=== PATIENT | male | born 1935 | race Caucasian/White ===

== ENCOUNTER 2018-06-16 12:44 | Outpatient (CLI) | payer MEDICARE ==
--- NOTE | 2018-06-16 14:57 | MRI ---
MRI LUMBAR SPINE WITHOUT CONTRAST: Multiplanar, multisequential imaging of the lumbar spine is obtained. INDICATION: Back pain. Lumbar stenosis with claudication. FINDINGS: Lumbar vertebrae maintain normal height and alignment. The disk spaces are maintained. Mild degener ative spurring is seen from the lumbar vertebrae. At T12-L1, mild disk bulge flattens the anterior thecal sac. No central canal stenosis. At L1-2, mild disk bulge flattens the anterior thecal sac. No central canal or foraminal stenosis. At L2-3, no significant disk bulge. Mild facet arthrosis. No central canal or foraminal stenosis. At L3-4, very mild disk bulge abuts the anterior thecal sac. Mild facet hypertrophy. No significant central canal or foraminal stenosis. At L4-5, mild disk bulge flattens the thecal sac. Facet and ligamentous hypertrophy is more pronounc ed. Mild central canal stenosis. At L5-S1, broad-based disk bulge abuts the anterior thecal sac. Facet arthrosis and mild hypertrophy . No significant central canal stenosis. Left foraminal encroachment due to disk-osteophyte complex extending into the left foramen and impinging on the exiting left L5 nerve root is noted. IMPRESSION: Mild disk bulge at several levels is noted above with facet hypertrophy as described. Mild central c anal stenosis at L4-5 and mild left foraminal encroachment at L5-S1. POS: [facility]
== END 2018-06-16 12:45 | disposition home or self-care (01) ==
LOC: TBSIIMAG 12:44
PROVIDERS: ATTEND Neurological Surgery
DX: M48.062 Spinal stenosis, lumbar region with neurogenic claudication (principal); M48.07 Spinal stenosis, lumbosacral region; M48.8X6 Other specified spondylopathies, lumbar region
CPT/HCPCS: 72148

== ENCOUNTER 2018-06-27 13:34 | Outpatient (CLI) | payer MEDICARE ==
--- NOTE | 2018-07-28 12:04 | ULT ---
LOWER EXTREMITY ARTERIAL EVALUATION: Lower extremity arterial evaluation was performed using Doppler waveform analysis and segmental limb pressures. Examination of the right leg reveals fairly well pres erved segmental limb pressures at the femoral, posterior tibial, and dorsalis pedis level, although a nkle-arm index is diminished at 0.75. Toe-brachial index is diminished at 0.28. Left lower extremity demonstrates slightly diminished waveforms at the femoral, popliteal, and then monophasic signals in the tibial circulation with an ankle-arm index of 0.64. Toe-brachial index is again diminished at 0.2 2. This study shows peripheral arterial disease, more significant in the left leg than the right leg. It could be consistent with a history of claudication or ulceration to left foot.
== END 2018-06-27 13:35 | disposition home or self-care (01) ==
LOC: ULT 13:34
PROVIDERS: ATTEND Neurological Surgery
DX: M48.062 Spinal stenosis, lumbar region with neurogenic claudication (principal); I73.9 Peripheral vascular disease, unspecified
CPT/HCPCS: 93922

== ENCOUNTER 2018-11-24 13:58 | Outpatient (CLI) | payer MEDICARE ==
--- NOTE | 2018-11-24 15:31 | MRI ---
MRI BRAIN WITH AND WITHOUT IV CONTRAST: HISTORY: Ataxia. FINDINGS: No restricted diffusion is seen. No evidence of infarct, hemorrhage, mass, midline shift, or abnorma l extraaxial fluid collection is noted. There are multiple foci of T2 prolongation in the periventri cular white matter consistent with chronic small-vessel ischemic disease. There is ventricular sulca l prominence due to cortical atrophy. No abnormal postcontrast enhancement is seen. No tonsillar he rniation is identified. There is mucosal disease in the paranasal sinuses. IMPRESSION: 1. No evidence of acute intracranial process or mass. 2. Cortical atrophy. 3. Chronic small-vessel ischemic disease. 4. Paranasal sinus disease. POS: OFF
== END 2018-11-24 13:59 | disposition home or self-care (01) ==
LOC: BICMRI 13:58
PROVIDERS: ATTEND Psychiatry & Neurology Neurology
DX: R27.0 Ataxia, unspecified (principal); G31.9 Degenerative disease of nervous system, unspecified; I67.82 Cerebral ischemia; J32.9 Chronic sinusitis, unspecified
CPT/HCPCS: 70553; 82565

== ENCOUNTER 2019-12-01 11:10 | Emergency (ER) | payer MEDICARE, OTHER | END 2019-12-01 12:10 | disposition home or self-care (01) | LOC: ERS 11:10 | DX: Z20.828 Contact with and (suspected) exposure to other viral communicable diseases (principal) | CPT/HCPCS: 99283; U0003; 87635 ==

== ENCOUNTER 2020-01-31 15:43 | Emergency (ER) | payer MEDICARE, OTHER ==
--- NOTE | 2020-01-31 16:44 | RAD ---
XR Chest 1 View Portable History: Chest pain. Fall Comparison: Radiograph 2019 Findings: Patient is rotated to the right. Pulmonary arteries are dilated. Heart size upper limits of normal. Calcified granuloma right lung base. Minimally displaced left posterior seventh rib fracture. Mildly displaced one half shaft width anteri or left 10th rib fracture. No pneumothorax. Impression: Left posterior seventh and anterior left 10th rib fractures. There are likely other rib f ractures which are nondisplaced and not well seen. No underlying pneumothorax.
--- NOTE | 2020-01-31 17:15 | CT ---
EXAM: CT of the cervical spine without contrast HISTORY: Neck pain after fall COMPARISON: None TECHNIQUE: Multiple contiguous axial images were obtained in a CT of the cervical spine without contr ast. Sagittal and coronal reformats were performed. FINDINGS: The vertebral bodies and intervertebral discs demonstrate normal height and alignment witho ut fracture or subluxation. Mild diffuse degenerative changes are present. No prevertebral soft tissue swelling is seen. The posterior facets are well aligned. Normal alignment of the skull base with the cervical spine is seen. The lung apices are unremarkable. Callus cages are seen in the carotid arteries. IMPRESSION: No evidence of acute osseous abnormality of the cervical spine.
--- NOTE | 2020-01-31 17:17 | CT ---
EXAM: CT brain without contrast HISTORY: Fall with head trauma COMPARISON: MRI brain 11/24/2018 TECHNIQUE: Multiple contiguous axial images were obtained and a CT of the brain without contrast. FINDINGS: There are scattered hypodensities in the subcortical and periventricular white matter consi stent with small vessel ischemic disease. There is no evidence of hydrocephalus, intracranial hemorrhage, or extra-axial fluid collection. The calvarium and overlying soft tissues are unremarkable. Mucosal thickening is seen in the paranasa l sinuses. The mastoid air cells are well aerated. IMPRESSION: No evidence of acute intracranial abnormality
[2020-01-31 17:41] LABS: #Eosinphils 0.1 thou/uL (0.0-0.7); #Lymphocytes 1.7 thou/uL (1.20-3.40); #Monocytes 0.9 thou/uL (0.11-0.59); #Neutrophils 7.8 thou/uL (1.40-6.50); %Basophils 0.3 % (0.0-1.0); %Eosinophils 0.7 % (0.0-10.0); %Lymphocytes 16.5 % (21.0-51.0); %Monocytes 8.2 % (0.0-10.0); %Neutrophils 74.3 % (42.0-75.0); Hemoglobin 13.6 g/dL (14.0-18.0); Mean Corpuscular HGB CONC 33.4 g/dL (32.0-36.0); Mean Corpuscular Hemoglobin 32.8 pg (27.0-31.0); Mean Corpuscular Volume 98.2 fL (78.0-98.0); Mean Platelet Volume 8.7 fL (7.4-10.4); Platelet Count 224 thou/uL (130-400); RBC Distribution Width 12.4 % (11.5-14.5); Red Blood Cell (RBC) Count 4.16 mill/uL (4.70-6.10); White Blood Cell (WBC) Count 10.4 thou/uL (4.8-10.8)
[2020-01-31 17:59] LABS: ALT (SGPT) 12 U/L (8-55); AST (SGOT) 19 U/L (5-34); Alkaline Phosphatase 58 U/L (40-110); Anion Gap 10 mmol/L (10-20); BUN (Urea Nitrogen) 17 mg/dL (8.4-25.7); Bilirubin, Total 0.9 mg/dL (0.2-1.2); CK (CPK) 300 U/L (30-200); Calc. Creatinine Clearance 0 mL/min (70-130); Calcium 9.6 mg/dL (7.8-10.44); Carbon Dioxide 28 mmol/L (23-31); Chloride 105 mmol/L (98-107); Estimated GFR-MDRD 67; Globulin 3.1 g/dL (2.4-3.5); Glucose 116 mg/dL (83-110); Potassium 3.5 mmol/L (3.5-5.1); Protein, Total 7.1 g/dL (5.8-8.1); Sodium 139 mmol/L (136-145)
--- NOTE | 2020-02-03 15:20 | EKG ---
Test Reason : EMERGENCY EXAM Blood Pressure : / mmHG Vent. Rate : 084 BPM Atrial Rate : 084 BPM P-R Int : 198 ms QRS Dur : 144 ms QT Int : 390 ms P-R-T Axes : 063 -29 010 degrees QTc Int : 460 ms Normal sinus rhythm Possible Left atrial enlargement Non-specific intra-ventricular conduction block Abnormal ECG Confirmed by CHRISTIANE PACE DO ([id number]), order editor SHAYNA BARROS ([id number]) on 02/03/2020 3:20:00 PM Referred By: Confirmed By:CHRISTIANE PACE DO
== END 2020-01-31 18:23 | disposition left against medical advice (07) ==
LOC: ERS 15:43
DX: S22.42XA Multiple fractures of ribs, left side, initial encounter for closed fracture (principal); W01.0XXA Fall on same level from slipping, tripping and stumbling without subsequent striking against object, initial encounter; Y92.59 Other trade areas as the place of occurrence of the external cause
CPT/HCPCS: 36415; 70450; 71045; 72125; 80053; 82550; 82553; 84484; 85025; 93005

== ENCOUNTER 2020-08-15 13:26 | Outpatient (CLI) | payer MEDICARE ==
[2020-08-15 15:11] LABS: #Basophils 0.1 10x3/uL (0.0-0.2); #Eosinphils 0.3 10x3/uL (0.0-0.5); #Monocytes 0.7 10x3/uL (0.0-1.1); #Neutrophils 4.3 10x3/uL (1.5-8.4); %Basophils 1.1 % (0.0-2.0); %Eosinophils 4.1 % (0.0-6.0); %Lymphocytes 28.4 % (18.0-47.0); %Monocytes 8.8 % (0.0-10.0); %Neutrophils 57.3 % (40.0-75.0); Hemoglobin 12.4 g/dL (13.5-17.5); Mean Corpuscular HGB CONC 32.4 g/dL (32.0-36.0); Mean Corpuscular Hemoglobin 30.8 pg (27.0-33.0); Mean Corpuscular Volume 95.3 fl (81.2-95.1); Mean Platelet Volume 10.5 fl (7.4-10.4); Platelet Count 257 10x3/uL (150-450); RBC Distribution Width 13.3 % (11.5-14.5); Red Blood Cell (RBC) Count 4.02 10x6/uL (4.32-5.72); White Blood Cell (WBC) Count 7.5 10x3/uL (3.5-10.5)
[2020-08-16 04:32] LABS: SARS-CoV-2 PCR by NAA Not Detected (NotDetected)
== END 2020-08-15 13:27 | disposition home or self-care (01) ==
LOC: LABBT 13:26
PROVIDERS: ATTEND Orthopaedic Surgery Hand Surgery
DX: Z01.818 Encounter for other preprocedural examination (principal); M72.0 Palmar fascial fibromatosis [Dupuytren]; Z20.822 Contact with and (suspected) exposure to COVID-19
CPT/HCPCS: 85025; 93005; U0003; U0005; 87635; 93010

== ENCOUNTER 2020-08-20 08:09 | Day surgery (SDC) | payer MEDICARE ==
[2020-08-16 15:38] VITALS: BMI 24.4
[2020-08-20] MEDS ORDERED: PROPOFOL 200 MG/20 ML VIAL ONE (08:41)
[2020-08-20] MEDS ORDERED: Collagenase Clostridium Hist. 0.9 MG VIAL FS SCH (10:15)
[2020-08-20] MEDS ORDERED: Bupivacaine PF 0.5% 30 ML VIAL ONE (12:26)
[2020-08-20] MEDS ORDERED: Propofol 500 MG/50 ML VIAL ONE (12:39)
[2020-08-20] MEDS ORDERED: Fentanyl 100 MCG/2 ML VIAL ONE (12:39)
[2020-08-20] MEDS ORDERED: Midazolam HCl 2 mg/2 ml Vial ONE (12:39)
== END 2020-08-20 14:10 | disposition home or self-care (01) ==
LOC: SDC 08:09
PROVIDERS: ATTEND Orthopaedic Surgery Hand Surgery
PROC: 3E0U3GC Introduction of Other Therapeutic Substance into Joints, Percutaneous Approach (ICD-10-PCS; principal; 2020-08-20)
DX: M72.0 Palmar fascial fibromatosis [Dupuytren] (principal); M18.12 Unilateral primary osteoarthritis of first carpometacarpal joint, left hand; L72.3 Sebaceous cyst; I10 Essential (primary) hypertension; E11.9 Type 2 diabetes mellitus without complications; J32.9 Chronic sinusitis, unspecified; Z87.891 Personal history of nicotine dependence; Z79.82 Long term (current) use of aspirin; Z79.84 Long term (current) use of oral hypoglycemic drugs; Z79.899 Other long term (current) drug therapy
CPT/HCPCS: 20527; J0775; J0690; J2250; J2704; J3010; S0020

== ENCOUNTER 2020-08-26 13:15 | Outpatient (CLI) | payer MEDICARE ==
[2020-08-27 04:20] LABS: SARS-CoV-2 PCR by NAA Not Detected (NotDetected)
== END 2020-08-26 13:16 | disposition home or self-care (01) ==
LOC: LABBT 13:15
PROVIDERS: ATTEND Orthopaedic Surgery Hand Surgery
DX: Z01.812 Encounter for preprocedural laboratory examination (principal); M72.0 Palmar fascial fibromatosis [Dupuytren]; Z20.822 Contact with and (suspected) exposure to COVID-19
CPT/HCPCS: U0003; U0005; 87635

== ENCOUNTER 2020-08-28 11:36 | Day surgery (SDC) | payer MEDICARE ==
[2020-08-27 11:17] VITALS: BMI 26.4
[2020-08-28] MEDS ORDERED: Mineral Oil Sterile 10ML 10 ML UDCUP ONE (13:25)
[2020-08-28] MEDS ORDERED: Thrombin 5000 UNITS/5 ML VIAL ONE (13:25)
[2020-08-28] MEDS ORDERED: Bupivacaine PF 0.5% 30 ML VIAL ONE (13:25)
[2020-08-28] MEDS ORDERED: Fentanyl 100 MCG/2 ML VIAL ONE (13:29)
[2020-08-28] MEDS ORDERED: Ondansetron PF 4 MG/2 ML Vial ONE (14:17)
[2020-08-28] MEDS ORDERED: PROPOFOL 200 MG/20 ML VIAL ONE (14:17)
[2020-08-28] MEDS ORDERED: Lidocaine 1% PF 5 ML VIAL ONE (14:17)
[2020-08-28] MEDS ORDERED: Bacitracin Zinc Ointment 30 gm TUBE ONE (15:01)
[2020-08-28] MEDS ORDERED: Ketorolac Tromethamine 30 MG/ML VIAL ONE (15:45)
[2020-08-28] MEDS ORDERED: Metoprolol Tartrate 5 MG/5 ML VIAL ONE (16:15)
== END 2020-08-28 17:15 | disposition home or self-care (01) ==
LOC: SDC 11:36
PROVIDERS: ATTEND Orthopaedic Surgery Hand Surgery
PROC: 0JBK0ZZ Excision of Left Hand Subcutaneous Tissue and Fascia, Open Approach (ICD-10-PCS; principal; 2020-08-28)
PROC: 0HRGX73 Replacement of Left Hand Skin with Autologous Tissue Substitute, Full Thickness, External Approach (ICD-10-PCS; 2020-08-28)
DX: S61.205A Unspecified open wound of left ring finger without damage to nail, initial encounter (principal); M72.0 Palmar fascial fibromatosis [Dupuytren]; I10 Essential (primary) hypertension; E11.9 Type 2 diabetes mellitus without complications; M18.12 Unilateral primary osteoarthritis of first carpometacarpal joint, left hand; Z79.82 Long term (current) use of aspirin; Z79.84 Long term (current) use of oral hypoglycemic drugs; Z79.899 Other long term (current) drug therapy
CPT/HCPCS: J0690; J1885; J2405; J2704; J3010; J3490; S0020

== ENCOUNTER 2021-02-21 16:45 | Inpatient (IN) | payer MEDICARE ==
[2021-02-21 18:43] LABS: Anion Gap 22 mmol/L (10-20); BUN (Urea Nitrogen) 28 mg/dL (8.4-25.7); Calc. Creatinine Clearance 0 mL/min (70-130); Carbon Dioxide 20 mmol/L (23-31); Chloride 103 mmol/L (98-107); Potassium 3.9 mmol/L (3.5-5.1); Sodium 141 mmol/L (136-145)
[2021-02-21 18:44] LABS: ALT (SGPT) 31 U/L (8-55); AST (SGOT) 61 U/L (5-34); Acetaminophen Less than 6.0 mcg/mL (10.0-30.0); Alkaline Phosphatase 74 U/L (40-110); Bilirubin, Total 0.9 mg/dL (0.2-1.2); Calcium 10.1 mg/dL (7.8-10.44); Globulin 3.4 g/dL (2.4-3.5); Glucose 213 mg/dL (83-110); Protein, Total 7.4 g/dL (5.8-8.1)
[2021-02-21 18:45] LABS: Alcohol Less than 10 mg/dL (Less than 10); Salicylate Less than 8.0 mg/dL (15.0-30.0)
[2021-02-21] MEDS ORDERED: cefTRIAXone\\ROCEPHIN 2 GM VIAL ONE (19:05)
[2021-02-21] MEDS ORDERED: Azithromycin 500 MG VIAL ONE (19:27)
[2021-02-21 19:30] LABS: PTT 22.4 sec (22.9-36.1); Prothrombin Time 13.5 sec (12.0-14.7)
[2021-02-21 19:35] LABS: Hemoglobin 15.5 g/dL (14.0-18.0); Red Blood Cell (RBC) Count 4.89 mill/uL (4.70-6.10); White Blood Cell (WBC) Count 15.7 thou/uL (4.8-10.8)
[2021-02-21 19:36] LABS: Mean Corpuscular Hemoglobin 31.7 pg (27.0-31.0); Mean Corpuscular Volume 97.6 fL (78.0-98.0)
[2021-02-21 19:37] LABS: Mean Corpuscular HGB CONC 32.5 g/dL (32.0-36.0); Platelet Count 263 thou/uL (130-400); RBC Distribution Width 12.5 % (11.5-14.5)
[2021-02-21 19:38] LABS: #Lymphocytes 0.9 thou/uL (1.20-3.40); #Neutrophils 13.4 thou/uL (1.40-6.50); %Basophils 0.2 % (0.0-1.0); %Eosinophils 0.1 % (0.0-10.0); %Lymphocytes 5.7 % (21.0-51.0); %Monocytes 8.7 % (0.0-10.0); %Neutrophils 85.3 % (42.0-75.0); Mean Platelet Volume 9.2 fL (7.4-10.4)
[2021-02-21 19:39] LABS: #Monocytes 1.4 thou/uL (0.11-0.59)
[2021-02-21] MEDS ORDERED: Ondansetron ODT 4 MG TAB PO PRN (20:24)
[2021-02-21] MEDS ORDERED: Ondansetron PF 4 MG/2 ML Vial IVP PRN (20:24)
[2021-02-21] MEDS ORDERED: Acetaminophen 325 MG TAB PO PRN (20:24)
[2021-02-21 21:39] LABS: Clarity Clear (Clear)
[2021-02-21 21:42] LABS: Bilirubin Negative (Negative); Blood, Urine Large (Negative); Glucose, Urine (Dipstick) 100 mg/dL (Negative); Ketone, Urine 15 mg/dL (Negative); Leukocyte Negative Leu/uL (Negative); Nitrite Negative (Negative); Protein, Urine (Dipstick) > or equal to 300 mg/dL (Neg-Trace); Specific Gravity, Urine 1.025 (1.002-1.036); Urobilinogen 0.2 mg/dL (Less than 2); pH, Urine 5.5 (5.0-9.0)
[2021-02-21 21:44] LABS: Bacteria/HPF None Seen HPF (None Seen); Squamous Epithelial 0-3 HPF (0-3); WBC/HPF 0-3 HPF (0-3)
[2021-02-21 21:51] LABS: Cocaine Metabolite Screen Not Detected (NotDetected); Phencyclidine (PCP) Not Detected (NotDetected); THC/Cannabinoid Screen Not Detected (NotDetected)
[2021-02-21 21:52] LABS: Amphetamine Not Detected (NotDetected); Barbiturates Screen Not Detected (NotDetected); Benzodiazepine Screen Not Detected (NotDetected); Methadone Not Detected (NotDetected); Methamphetamine Not Detected (NotDetected); Opiate Screen Not Detected (NotDetected); Oxycodone Screen Not Detected (NotDetected); Tricyclic Screen Not Detected (NotDetected)
[2021-02-21 22:15] LABS: Troponin I 0.196 ng/mL (< 0.028)
[2021-02-21 22:19] LABS: Lactic Acid 4.1 mmol/L (0.5-2.2)
[2021-02-22] MEDS: hydrALAZINE 20 MG/ML VIAL SLOW IVP PRN ×2 (04:26→09:39)
[2021-02-22 08:40] VITALS: BMI 25.7
[2021-02-22 08:54] LABS: CKMB 48.6 ng/mL (0-6.6)
[2021-02-22] MEDS: Piperacillin/Tazobactam 3.375 GM in Sodium Chloride 0.9% 100 ML IVPB SCH ×4 (08:55→23:36)
[2021-02-22] MEDS: VANCOMYCIN 1.25 GM/250 ML BAG 1.25 GM in Premix Bag 1 BAG IVPB SCH ×2 (08:55→12:42)
[2021-02-22] MEDS: Enoxaparin Sodium 30 MG/0.3 ML SYRINGE SC SCH (09:43)
[2021-02-22 10:02] LABS: Lactic Acid 2.3 mmol/L (0.5-2.2)
[2021-02-22] MEDS: Sodium Chloride 0.9% 1,000 ML IV SCH ×2 (10:14→15:29)
[2021-02-22 10:15] LABS: Troponin I 0.133 ng/mL (< 0.028)
[2021-02-22 10:51] LABS: Anion Gap 15 mmol/L (10-20); BUN (Urea Nitrogen) 26 mg/dL (8.4-25.7); Calc. Creatinine Clearance 36 mL/min (70-130); Calcium 8.7 mg/dL (7.8-10.44); Carbon Dioxide 19 mmol/L (23-31); Chloride 110 mmol/L (98-107); Glucose 138 mg/dL (83-110); Potassium 4.3 mmol/L (3.5-5.1); Sodium 140 mmol/L (136-145)
[2021-02-22 10:51] LABS: INR-International Normal Ratio 1.1; PTT 28.7 sec (22.9-36.1); Prothrombin Time 14.2 sec (12.0-14.7)
[2021-02-22 10:53] LABS: Hemoglobin 15.6 g/dL (14.0-18.0); Mean Corpuscular HGB CONC 32.1 g/dL (32.0-36.0); Mean Corpuscular Volume 99.7 fL (78.0-98.0); Mean Platelet Volume 9.1 fL (7.4-10.4); Platelet Count 223 thou/uL (130-400); RBC Distribution Width 12.7 % (11.5-14.5); Red Blood Cell (RBC) Count 4.87 mill/uL (4.70-6.10)
[2021-02-22 11:36] LABS: Band 3 % (5-11); Lymphocytes 9 % (21-51); MDiff Complete? YES; Monocytes 6 % (0-10); Neutrophil 82 % (42-75); Platelet Morphology Comment Appears Adequate
[2021-02-22 12:11] LABS: Hemoglobin 15.6 g/dL (14.0-18.0); Red Blood Cell (RBC) Count 5.01 mill/uL (4.70-6.10); White Blood Cell (WBC) Count 19.1 thou/uL (4.8-10.8)
[2021-02-22 12:12] LABS: #Eosinphils 0.1 thou/uL (0.0-0.7); #Lymphocytes 2.6 thou/uL (1.20-3.40); #Neutrophils 14.5 thou/uL (1.40-6.50); %Basophils 0.1 % (0.0-1.0); %Eosinophils 0.3 % (0.0-10.0); %Lymphocytes 13.5 % (21.0-51.0); %Monocytes 10.5 % (0.0-10.0); %Neutrophils 75.7 % (42.0-75.0); Mean Corpuscular HGB CONC 31.7 g/dL (32.0-36.0); Mean Corpuscular Hemoglobin 31.1 pg (27.0-31.0); Mean Platelet Volume 9.3 fL (7.4-10.4); Platelet Count 212 thou/uL (130-400); RBC Distribution Width 12.5 % (11.5-14.5)
[2021-02-22] MEDS ORDERED: Piperacillin/Tazobactam 3.375 GM in Sodium Chloride 0.9% 100 ML IVPB SCH (13:00)
[2021-02-22] MEDS ORDERED: Aspirin 325 mg Enteric Coated Tablet PO SCH (14:45)
[2021-02-22] MEDS ORDERED: Iopamidol-370 76% 500 ML 1 ML ONE (15:22)
[2021-02-22] MEDS ORDERED: VANCOMYCIN 1.25 GM/250 ML BAG 1.25 GM in Premix Bag 1 BAG IVPB SCH (16:00)
[2021-02-22] MEDS ORDERED: Azithromycin 500 MG in Sodium Chloride 0.9% 250 ML 250 ML IVPB SCH (18:00)
[2021-02-22 19:12] LABS: SARS-CoV-2 PCR by NAA Not Detected (NotDetected)
[2021-02-22] MEDS: Atorvastatin Calcium 40 MG TAB PO SCH (21:13)
[2021-02-23] MEDS ORDERED: VANCOMYCIN 1.25 GM/250 ML BAG 1.25 GM in Premix Bag 1 BAG IVPB SCH (01:00)
[2021-02-23] MEDS: Vancomycin HCl 1.25 GM in Sodium Chloride 0.9% 250 ML 250 ML IVPB SCH ×3 (02:04→17:46)
[2021-02-23 06:34] LABS: Cardiac Risk 3.4 (Less than 4.5)
[2021-02-23 06:50] LABS: Syphilis Antibody Nonreactive (Nonreactive); Syphilis Antibody Index 0.06 S/CO (<1.00 Non-Reactive)
[2021-02-23] MEDS: Aspirin 325 mg Enteric Coated Tablet PO SCH (10:32)
[2021-02-23] MEDS: Enoxaparin Sodium 30 MG/0.3 ML SYRINGE SC SCH (10:32)
[2021-02-23] MEDS: Piperacillin/Tazobactam 3.375 GM in Sodium Chloride 0.9% 100 ML IVPB SCH ×2 (10:33→16:52)
[2021-02-23] MEDS: hydrALAZINE 20 MG/ML VIAL SLOW IVP PRN ×2 (10:43→17:00)
[2021-02-23] MEDS: Sodium Chloride 0.9% 1,000 ML IV SCH (13:08)
[2021-02-23 16:01] LABS: Vancomycin, Trough 11.6 ug/mL
[2021-02-23] MEDS ORDERED: Vancomycin 1 GM in Premix Bag 1 BAG IVPB SCH (17:00)
[2021-02-23 18:31] LABS: CCP IgG Antibody 0.4 EliAU/mL (<7 Negative); EliA RAS New Method **** NEW METHOD ****; Rheumatoid Factor IgA Antibody 5.5 IU/mL (<14 Negative); Rheumatoid Factor IgM Antibody 0.8 IU/mL (<3.5 Negative)
[2021-02-23] MEDS: Atorvastatin Calcium 40 MG TAB PO SCH (21:56)
[2021-02-23] MEDS: Carbidopa/Levodopa 25-100 mg Tablet PO SCH (21:57)
[2021-02-24 05:56] LABS: #Basophils 0.1 thou/uL (0.0-0.2); #Eosinphils 0.4 thou/uL (0.0-0.7); #Lymphocytes 2.9 thou/uL (1.20-3.40); #Neutrophils 7.4 thou/uL (1.40-6.50); %Basophils 0.5 % (0.0-1.0); %Eosinophils 3.6 % (0.0-10.0); %Lymphocytes 24.5 % (21.0-51.0); %Monocytes 8.1 % (0.0-10.0); %Neutrophils 63.2 % (42.0-75.0); Mean Corpuscular HGB CONC 32.2 g/dL (32.0-36.0); Mean Corpuscular Hemoglobin 31.8 pg (27.0-31.0); Mean Corpuscular Volume 98.8 fL (78.0-98.0); Mean Platelet Volume 9.2 fL (7.4-10.4); Platelet Count 190 thou/uL (130-400); RBC Distribution Width 12.5 % (11.5-14.5); Red Blood Cell (RBC) Count 3.78 mill/uL (4.70-6.10); White Blood Cell (WBC) Count 11.6 thou/uL (4.8-10.8)
[2021-02-24 06:04] LABS: Anion Gap 11 mmol/L (10-20); BUN (Urea Nitrogen) 18 mg/dL (8.4-25.7); Calc. Creatinine Clearance 50 mL/min (70-130); Calcium 8.8 mg/dL (7.8-10.44); Carbon Dioxide 24 mmol/L (23-31); Chloride 111 mmol/L (98-107); Glucose 120 mg/dL (83-110); Potassium 3.3 mmol/L (3.5-5.1); Sodium 143 mmol/L (136-145)
[2021-02-24] MEDS: Lisinopril 20 MG TAB PO SCH (09:07)
[2021-02-24] MEDS: Carbidopa/Levodopa 25-100 mg Tablet PO SCH ×4 (09:07→21:43)
[2021-02-24] MEDS: Enoxaparin Sodium 30 MG/0.3 ML SYRINGE SC SCH (09:08)
[2021-02-24] MEDS: Aspirin 325 mg Enteric Coated Tablet PO SCH (09:08)
[2021-02-24] MEDS: Tamsulosin HCl 0.4 MG CAP PO SCH (09:08)
[2021-02-24] MEDS: hydrALAZINE 20 MG/ML VIAL SLOW IVP PRN (10:22)
[2021-02-24] MEDS ORDERED: Potassium Chloride 20 MEQ TAB PO SCH (14:00)
[2021-02-24] MEDS ORDERED: Amlodipine 5 MG TAB PO SCH (14:00)
[2021-02-24] MEDS: Atorvastatin Calcium 40 MG TAB PO SCH (21:43)
[2021-02-25] MEDS: Lisinopril 20 MG TAB PO SCH (09:24)
[2021-02-25] MEDS: Aspirin 325 mg Enteric Coated Tablet PO SCH (09:24)
[2021-02-25] MEDS: Carbidopa/Levodopa 25-100 mg Tablet PO SCH ×3 (09:25→20:24)
[2021-02-25] MEDS: Tamsulosin HCl 0.4 MG CAP PO SCH (09:25)
[2021-02-25] MEDS: Amlodipine 5 MG TAB PO SCH (09:26)
[2021-02-25] MEDS: Enoxaparin Sodium 30 MG/0.3 ML SYRINGE SC SCH (09:28)
[2021-02-25 09:30] LABS: #Basophils 0.1 thou/uL (0.0-0.2); #Eosinphils 0.6 thou/uL (0.0-0.7); #Monocytes 0.7 thou/uL (0.11-0.59); #Neutrophils 6.5 thou/uL (1.40-6.50); %Basophils 0.6 % (0.0-1.0); %Eosinophils 5.9 % (0.0-10.0); %Lymphocytes 19.9 % (21.0-51.0); %Monocytes 7.5 % (0.0-10.0); %Neutrophils 66.1 % (42.0-75.0); Hemoglobin 12.1 g/dL (14.0-18.0); Mean Corpuscular HGB CONC 33.4 g/dL (32.0-36.0); Mean Corpuscular Hemoglobin 32.7 pg (27.0-31.0); Mean Corpuscular Volume 97.9 fL (78.0-98.0); Mean Platelet Volume 9.6 fL (7.4-10.4); Platelet Count 191 thou/uL (130-400); RBC Distribution Width 12.2 % (11.5-14.5); Red Blood Cell (RBC) Count 3.69 mill/uL (4.70-6.10); White Blood Cell (WBC) Count 9.9 thou/uL (4.8-10.8)
[2021-02-25 09:57] LABS: Anion Gap 11 mmol/L (10-20); BUN (Urea Nitrogen) 17 mg/dL (8.4-25.7); Calc. Creatinine Clearance 59 mL/min (70-130); Calcium 8.6 mg/dL (7.8-10.44); Carbon Dioxide 25 mmol/L (23-31); Chloride 105 mmol/L (98-107); Glucose 111 mg/dL (83-110); Magnesium 2.1 mg/dL (1.6-2.6); Potassium 3.4 mmol/L (3.5-5.1); Sodium 138 mmol/L (136-145)
[2021-02-25] MEDS ORDERED: Potassium Chloride 20 MEQ in Premix Bag 1 BAG IVPB SCH (16:00)
[2021-02-25] MEDS: NS 0.9% w/ 20 MEQ KCL 1,000 ML/1,000 ML BAG IV SCH (18:50)
[2021-02-25] MEDS: Atorvastatin Calcium 40 MG TAB PO SCH (20:24)
[2021-02-26] MEDS: hydrALAZINE 20 MG/ML VIAL SLOW IVP PRN ×2 (03:48→21:01)
[2021-02-26] MEDS: NS 0.9% w/ 20 MEQ KCL 1,000 ML/1,000 ML BAG IV SCH ×2 (03:48→21:01)
[2021-02-26] MEDS ORDERED: Loperamide HCl 2 MG CAP PO PRN (08:47)
[2021-02-26] MEDS ORDERED: Sodium Chloride 0.65% Nasal 44 ML BOT EA NARE PRN (08:47)
[2021-02-26] MEDS ORDERED: Loratadine 10 MG TAB PO PRN (08:47)
[2021-02-26] MEDS ORDERED: Calcium Carbonate 500 MG ChewTAB PO PRN (08:47)
[2021-02-26] MEDS ORDERED: GUAIFENESIN SF SOLN 200 MG/10 ML UDCUP PO PRN (08:47)
[2021-02-26] MEDS ORDERED: Bisacodyl 10 MG SUPP PR PRN (08:47)
[2021-02-26] MEDS ORDERED: Bisacodyl 5 MG TAB PO PRN (08:47)
[2021-02-26] MEDS ORDERED: Hydrocerin (Eucerin) Cream 120 gm Jar TOP PRN (08:47)
[2021-02-26] MEDS ORDERED: Artificial Tear Sol 15 ML BOT EA EYE PRN (08:47)
[2021-02-26] MEDS ORDERED: Senokot S 8.6-50 MG TAB PO PRN (08:47)
[2021-02-26] MEDS ORDERED: Labetalol HCl 100 MG/20 ML VIAL SLOW IVP PRN (08:47)
[2021-02-26] MEDS ORDERED: Cepastat Lozenges 1 LOZ PO PRN (08:47)
[2021-02-26] MEDS: Carbidopa/Levodopa 25-100 mg Tablet PO SCH ×3 (09:41→21:01)
[2021-02-26] MEDS: Enoxaparin Sodium 40 MG/0.4 ML SYRINGE SC SCH (09:41)
[2021-02-26] MEDS: Amlodipine 5 MG TAB PO SCH (09:41)
[2021-02-26] MEDS: Lisinopril 20 MG TAB PO SCH (09:41)
[2021-02-26] MEDS: Aspirin 325 mg Enteric Coated Tablet PO SCH (09:41)
[2021-02-26] MEDS: Tamsulosin HCl 0.4 MG CAP PO SCH (09:42)
[2021-02-26] MEDS: Atorvastatin Calcium 40 MG TAB PO SCH (21:01)
[2021-02-27] MEDS: Lisinopril 20 MG TAB PO SCH (08:47)
[2021-02-27] MEDS: Amlodipine 5 MG TAB PO SCH (08:48)
[2021-02-27] MEDS: Aspirin 325 mg Enteric Coated Tablet PO SCH (08:49)
[2021-02-27] MEDS: Carbidopa/Levodopa 25-100 mg Tablet PO SCH ×3 (08:49→21:13)
[2021-02-27] MEDS: Tamsulosin HCl 0.4 MG CAP PO SCH (08:50)
[2021-02-27] MEDS: Enoxaparin Sodium 40 MG/0.4 ML SYRINGE SC SCH (08:52)
[2021-02-27] MEDS: NS 0.9% w/ 20 MEQ KCL 1,000 ML/1,000 ML BAG IV SCH (10:15)
[2021-02-27] MEDS: hydrALAZINE 20 MG/ML VIAL SLOW IVP PRN (15:40)
[2021-02-27] MEDS: Atorvastatin Calcium 40 MG TAB PO SCH (21:13)
[2021-02-28 05:35] LABS: Hemoglobin A1c 5.6 % (4.0-6.0)
[2021-02-28 05:36] LABS: #Eosinphils 0.6 thou/uL (0.0-0.7); #Lymphocytes 1.6 thou/uL (1.20-3.40); #Monocytes 1.3 thou/uL (0.11-0.59); #Neutrophils 8.6 thou/uL (1.40-6.50); %Basophils 0.3 % (0.0-1.0); %Eosinophils 4.7 % (0.0-10.0); Hemoglobin 10.8 g/dL (14.0-18.0); Mean Corpuscular HGB CONC 32.6 g/dL (32.0-36.0); Mean Corpuscular Hemoglobin 32.1 pg (27.0-31.0); Mean Corpuscular Volume 98.4 fL (78.0-98.0); Mean Platelet Volume 9.6 fL (7.4-10.4); Platelet Count 189 thou/uL (130-400); RBC Distribution Width 12.4 % (11.5-14.5); Red Blood Cell (RBC) Count 3.37 mill/uL (4.70-6.10); White Blood Cell (WBC) Count 12.2 thou/uL (4.8-10.8)
[2021-02-28 05:52] LABS: ALT (SGPT) Less than 7 U/L (8-55); AST (SGOT) 26 U/L (5-34); Albumin 2.6 g/dL (3.4-4.8); Alkaline Phosphatase 50 U/L (40-110); Anion Gap 10 mmol/L (10-20); BUN (Urea Nitrogen) 16 mg/dL (8.4-25.7); CK (CPK) 470 U/L (30-200); Calc. Creatinine Clearance 57 mL/min (70-130); Calcium 8.1 mg/dL (7.8-10.44); Carbon Dioxide 21 mmol/L (23-31); Chloride 106 mmol/L (98-107); Globulin 2.2 g/dL (2.4-3.5); Glucose 114 mg/dL (83-110); Magnesium 1.9 mg/dL (1.6-2.6); Phosphorus 2.8 mg/dL (2.3-4.7); Potassium 3.4 mmol/L (3.5-5.1); Protein, Total 4.8 g/dL (5.8-8.1); Sodium 134 mmol/L (136-145)
[2021-02-28] MEDS ORDERED: Potassium Chloride 20 MEQ TAB PO SCH (07:00)
[2021-02-28] MEDS: Enoxaparin Sodium 40 MG/0.4 ML SYRINGE SC SCH (09:45)
[2021-02-28] MEDS: Aspirin 325 mg Enteric Coated Tablet PO SCH (09:45)
[2021-02-28] MEDS: Amlodipine 10 MG TAB PO SCH (09:45)
[2021-02-28] MEDS: Lisinopril 20 MG TAB PO SCH (09:45)
[2021-02-28] MEDS: Tamsulosin HCl 0.4 MG CAP PO SCH (09:45)
[2021-02-28] MEDS: Carbidopa/Levodopa 25-100 mg Tablet PO SCH ×3 (09:45→20:45)
[2021-02-28] MEDS: Atorvastatin Calcium 40 MG TAB PO SCH (20:45)
[2021-03-01] MEDS: Lisinopril 20 MG TAB PO SCH (08:38)
[2021-03-01] MEDS: Carbidopa/Levodopa 25-100 mg Tablet PO SCH ×3 (08:38→20:19)
[2021-03-01] MEDS: Aspirin 325 mg Enteric Coated Tablet PO SCH (08:39)
[2021-03-01] MEDS: Enoxaparin Sodium 40 MG/0.4 ML SYRINGE SC SCH (08:39)
[2021-03-01] MEDS: Tamsulosin HCl 0.4 MG CAP PO SCH (08:39)
[2021-03-01] MEDS: Amlodipine 10 MG TAB PO SCH (08:39)
[2021-03-01] MEDS: Atorvastatin Calcium 40 MG TAB PO SCH (20:19)
[2021-03-02 05:52] LABS: #Eosinphils 0.4 thou/uL (0.0-0.7); #Lymphocytes 1.2 thou/uL (1.20-3.40); #Neutrophils 7.5 thou/uL (1.40-6.50); %Basophils 0.2 % (0.0-1.0); %Eosinophils 3.9 % (0.0-10.0); %Lymphocytes 11.7 % (21.0-51.0); %Monocytes 9.9 % (0.0-10.0); %Neutrophils 74.4 % (42.0-75.0); Hemoglobin 10.7 g/dL (14.0-18.0); Mean Corpuscular HGB CONC 32.2 g/dL (32.0-36.0); Mean Corpuscular Hemoglobin 31.6 pg (27.0-31.0); Mean Corpuscular Volume 98.2 fL (78.0-98.0); Platelet Count 215 thou/uL (130-400); RBC Distribution Width 12.2 % (11.5-14.5); Red Blood Cell (RBC) Count 3.39 mill/uL (4.70-6.10); White Blood Cell (WBC) Count 10.1 thou/uL (4.8-10.8)
[2021-03-02 06:08] LABS: Anion Gap 11 mmol/L (10-20); BUN (Urea Nitrogen) 16 mg/dL (8.4-25.7); CK (CPK) 282 U/L (30-200); Calc. Creatinine Clearance 58 mL/min (70-130); Calcium 8.1 mg/dL (7.8-10.44); Carbon Dioxide 23 mmol/L (23-31); Chloride 103 mmol/L (98-107); Glucose 124 mg/dL (83-110); Potassium 3.8 mmol/L (3.5-5.1); Sodium 133 mmol/L (136-145)
[2021-03-02] MEDS: Lisinopril 20 MG TAB PO SCH (08:17)
[2021-03-02] MEDS: Amlodipine 10 MG TAB PO SCH (08:17)
[2021-03-02] MEDS: Carbidopa/Levodopa 25-100 mg Tablet PO SCH ×3 (08:17→21:45)
[2021-03-02] MEDS: Aspirin 325 mg Enteric Coated Tablet PO SCH (08:17)
[2021-03-02] MEDS: Enoxaparin Sodium 40 MG/0.4 ML SYRINGE SC SCH (08:17)
[2021-03-02] MEDS: Tamsulosin HCl 0.4 MG CAP PO SCH (08:17)
[2021-03-02 19:57] LABS: #Basophils 0.1 thou/uL (0.0-0.2); #Eosinphils 0.3 thou/uL (0.0-0.7); #Monocytes 1.1 thou/uL (0.11-0.59); #Neutrophils 5.5 thou/uL (1.40-6.50); %Basophils 0.7 % (0.0-1.0); %Eosinophils 3.8 % (0.0-10.0); %Lymphocytes 22.1 % (21.0-51.0); %Neutrophils 61.5 % (42.0-75.0); Mean Corpuscular Hemoglobin 31.6 pg (27.0-31.0); Mean Corpuscular Volume 98.5 fL (78.0-98.0); Platelet Count 218 thou/uL (130-400); RBC Distribution Width 12.3 % (11.5-14.5); Red Blood Cell (RBC) Count 3.48 mill/uL (4.70-6.10); White Blood Cell (WBC) Count 8.9 thou/uL (4.8-10.8)
[2021-03-02 20:11] LABS: ALT (SGPT) 11 U/L (8-55); AST (SGOT) 42 U/L (5-34); Alkaline Phosphatase 100 U/L (40-110); Anion Gap 12 mmol/L (10-20); BUN (Urea Nitrogen) 19 mg/dL (8.4-25.7); Bilirubin, Total 0.6 mg/dL (0.2-1.2); CK (CPK) 230 U/L (30-200); Calc. Creatinine Clearance 56 mL/min (70-130); Calcium 8.3 mg/dL (7.8-10.44); Carbon Dioxide 22 mmol/L (23-31); Chloride 104 mmol/L (98-107); Globulin 2.6 g/dL (2.4-3.5); Glucose 139 mg/dL (83-110); INR-International Normal Ratio 1.1; PTT 41.9 sec (22.9-36.1); Protein, Total 5.6 g/dL (5.8-8.1); Prothrombin Time 14.3 sec (12.0-14.7); Sodium 134 mmol/L (136-145)
[2021-03-02 20:43] LABS: CKMB 7.5 ng/mL (0-6.6)
[2021-03-02] MEDS: Acetaminophen 650 MG Suppository PR PRN (21:43)
[2021-03-02] MEDS: Atorvastatin Calcium 40 MG TAB PO SCH (21:44)
[2021-03-02 23:33] LABS: SARS-CoV-2 PCR by NAA Not Detected (NotDetected)
[2021-03-02 23:38] LABS: Troponin I 0.465 ng/mL (< 0.028)
[2021-03-03] MEDS: Enoxaparin Sodium 40 MG/0.4 ML SYRINGE SC SCH (09:44)
[2021-03-03] MEDS: Carbidopa/Levodopa 25-100 mg Tablet PO SCH ×3 (11:09→20:22)
[2021-03-03] MEDS ORDERED: Aspirin 300 MG Suppository PR SCH (11:45)
[2021-03-03] MEDS: Aspirin 325 mg Enteric Coated Tablet PO SCH (11:53)
[2021-03-03] MEDS: Lisinopril 20 MG TAB PO SCH (15:15)
[2021-03-03] MEDS: Amlodipine 10 MG TAB PO SCH (15:15)
[2021-03-03] MEDS: Tamsulosin HCl 0.4 MG CAP PO SCH (15:15)
[2021-03-03] MEDS: Acetaminophen 650 MG Suppository PR PRN ×2 (17:38→22:55)
[2021-03-03] MEDS: Atorvastatin Calcium 40 MG TAB PO SCH (20:22)
[2021-03-03] MEDS: hydrALAZINE 20 MG/ML VIAL SLOW IVP PRN (20:43)
[2021-03-04] MEDS: hydrALAZINE 20 MG/ML VIAL SLOW IVP PRN (05:07)
[2021-03-04 06:23] LABS: Anion Gap 12 mmol/L (10-20); BUN (Urea Nitrogen) 15 mg/dL (8.4-25.7); Calc. Creatinine Clearance 60 mL/min (70-130); Calcium 9.3 mg/dL (7.8-10.44); Carbon Dioxide 24 mmol/L (23-31); Chloride 104 mmol/L (98-107); Glucose 114 mg/dL (83-110); Magnesium 2.1 mg/dL (1.6-2.6); Phosphorus 3.1 mg/dL (2.3-4.7); Potassium 4.4 mmol/L (3.5-5.1); Sodium 136 mmol/L (136-145)
[2021-03-04 06:52] LABS: #Eosinphils 0.2 thou/uL (0.0-0.7); #Lymphocytes 1.5 thou/uL (1.20-3.40); #Neutrophils 8.1 thou/uL (1.40-6.50); %Basophils 0.4 % (0.0-1.0); %Lymphocytes 13.6 % (21.0-51.0); Hemoglobin 11.9 g/dL (14.0-18.0); Mean Corpuscular HGB CONC 29.8 g/dL (32.0-36.0); Mean Corpuscular Hemoglobin 29.3 pg (27.0-31.0); Mean Corpuscular Volume 98.3 fL (78.0-98.0); Mean Platelet Volume 9.5 fL (7.4-10.4); Platelet Count 278 thou/uL (130-400); RBC Distribution Width 12.4 % (11.5-14.5); RBC Morphology Normal; Red Blood Cell (RBC) Count 4.06 mill/uL (4.70-6.10); White Blood Cell (WBC) Count 10.8 thou/uL (4.8-10.8)
[2021-03-04] MEDS ORDERED: Aspirin Chewable 81 MG TAB PO SCH (09:00)
[2021-03-04] MEDS: Enoxaparin Sodium 40 MG/0.4 ML SYRINGE SC SCH (10:04)
[2021-03-04] MEDS: Amlodipine 10 MG TAB PO SCH (10:05)
[2021-03-04] MEDS: Carbidopa/Levodopa 25-100 mg Tablet PO SCH ×4 (10:06→22:02)
[2021-03-04] MEDS: Clopidogrel Bisulfate 75 MG TAB PO SCH (10:06)
[2021-03-04] MEDS: Lisinopril 20 MG TAB PO SCH (10:06)
[2021-03-04] MEDS: Tamsulosin HCl 0.4 MG CAP PO SCH (10:07)
[2021-03-04] MEDS ORDERED: Aspirin 300 MG Suppository PR SCH (13:00)
[2021-03-04] MEDS: Dextrose 5 % And 0.9 % NaCl 1,000 ML IV SCH (13:31)
[2021-03-04] MEDS: Cefepime 1 GM in Sodium Chloride 0.9% 100 ML IVPB SCH (13:31)
[2021-03-04] MEDS: Atorvastatin Calcium 40 MG TAB PO SCH (22:02)
[2021-03-04] MEDS: Acetaminophen 650 MG Suppository PR PRN (22:08)
[2021-03-05] MEDS: Cefepime 1 GM in Sodium Chloride 0.9% 100 ML IVPB SCH ×2 (01:39→13:24)
[2021-03-05] MEDS: Dextrose 5 % And 0.9 % NaCl 1,000 ML IV SCH ×2 (06:39→10:46)
[2021-03-05] MEDS ORDERED: Aspirin 300 MG Suppository PR SCH (09:00)
[2021-03-05] MEDS: Amlodipine 10 MG TAB PO SCH (10:39)
[2021-03-05] MEDS: Lisinopril 20 MG TAB PO SCH (10:40)
[2021-03-05] MEDS: Clopidogrel Bisulfate 75 MG TAB PO SCH (10:40)
[2021-03-05] MEDS: Carbidopa/Levodopa 25-100 mg Tablet PO SCH ×3 (10:40→17:50)
[2021-03-05] MEDS: Tamsulosin HCl 0.4 MG CAP PO SCH (10:40)
[2021-03-05] MEDS: Enoxaparin Sodium 40 MG/0.4 ML SYRINGE SC SCH (10:41)
[2021-03-05] MEDS ORDERED: metroNIDAZOLE 500 MG in Premix Bag 1 BAG IVPB SCH (14:00)
[2021-03-05 16:21] VITALS: TEMP 98.2
[2021-03-05 18:05] VITALS: BP 166/70
== END 2021-03-05 21:27 | disposition hospice, inpatient (51) | DRG 64 ==
LOC: ERS 16:45 → T4-A 20:03 → 3SE 02-22 10:42
PROVIDERS: ADMIT Student in an Organized Health Care Education/Training Program; ATTEND Internal Medicine
DX: I63.443 Cerebral infarction due to embolism of bilateral cerebellar arteries (principal); Z20.822 Contact with and (suspected) exposure to COVID-19; Z66 Do not resuscitate; Z51.5 Encounter for palliative care; J69.0 Pneumonitis due to inhalation of food and vomit; N17.9 Acute kidney failure, unspecified; M62.82 Rhabdomyolysis; E87.2 Acidosis; I16.1 Hypertensive emergency; G81.94 Hemiplegia, unspecified affecting left nondominant side; G93.49 Other encephalopathy; I63.49 Cerebral infarction due to embolism of other cerebral artery; I11.9 Hypertensive heart disease without heart failure; R79.89 Other specified abnormal findings of blood chemistry; R13.12 Dysphagia, oropharyngeal phase; I67.1 Cerebral aneurysm, nonruptured; E87.6 Hypokalemia; R29.725 NIHSS score 25; Z86.73 Personal history of transient ischemic attack (TIA), and cerebral infarction without residual deficits; Z28.21 Immunization not carried out because of patient refusal; Z79.899 Other long term (current) drug therapy; Z79.84 Long term (current) use of oral hypoglycemic drugs
CPT/HCPCS: 36415; 36416; 70450; 70496; 70498; 70551; 71045; 74230; 80048; 80053; 80061; 80202; 80306; 80307; 81001; 82140; 82550; 82553; 83036; 83520; 83605; 83735; 84100; 84484; 85025; 85610; 85730; 86200; 86780; 87040; 87086; 93005; 93010; 93306; 95712; 95819; 95957; J0360; J0456; J0692; J0696; J1650; J2543; J3370; J3480; J3490; J7042; J7050; Q9967; U0003; U0005